=== PATIENT | female | born 1975 | race Hispanic/Latino ===

== ENCOUNTER → 2021-08-22 | Outpatient (CLI) | payer OTHER, MEDICARE | LOC: RAD 11:04 | PROVIDERS: ATTEND Internal Medicine Infectious Disease | DX: S61.402A Unspecified open wound of left hand, initial encounter (principal) | CPT/HCPCS: 93306 ==

== ENCOUNTER → 2021-08-23 | Outpatient (CLI) | payer OTHER, MEDICARE | LOC: LAB 11:21 | PROVIDERS: ATTEND Internal Medicine Infectious Disease | DX: S61.402A Unspecified open wound of left hand, initial encounter (principal) | CPT/HCPCS: 87040 ==

== ENCOUNTER → 2021-08-27 | Outpatient (CLI) | payer OTHER, MEDICARE | LOC: CARD 11:33 | PROVIDERS: ATTEND Internal Medicine Infectious Disease | DX: I99.9 Unspecified disorder of circulatory system (principal); L98.491 Non-pressure chronic ulcer of skin of other sites limited to breakdown of skin | CPT/HCPCS: 93930 ==

== ENCOUNTER 2021-08-31 09:59 | Outpatient (RCR) | payer MEDICARE, OTHER | END 2021-09-02 | LOC: WCC 09:59 | PROVIDERS: ATTEND Internal Medicine Infectious Disease | DX: E11.65 Type 2 diabetes mellitus with hyperglycemia (principal); L98.491 Non-pressure chronic ulcer of skin of other sites limited to breakdown of skin; G90.09 Other idiopathic peripheral autonomic neuropathy; I99.9 Unspecified disorder of circulatory system; N18.6 End stage renal disease; I10 Essential (primary) hypertension; I50.20 Unspecified systolic (congestive) heart failure; H40.9 Unspecified glaucoma ==

== ENCOUNTER → 2021-09-06 | Outpatient (CLI) | payer OTHER, MEDICARE | LOC: MRI 10:01 | PROVIDERS: ATTEND Internal Medicine Infectious Disease | DX: L98.491 Non-pressure chronic ulcer of skin of other sites limited to breakdown of skin (principal) ==

== ENCOUNTER 2021-09-14 11:48 | Outpatient (RCR) | payer MEDICARE | END 2021-10-02 | LOC: WCC 11:48 | PROVIDERS: ATTEND Internal Medicine Infectious Disease | DX: E11.65 Type 2 diabetes mellitus with hyperglycemia (principal); L98.491 Non-pressure chronic ulcer of skin of other sites limited to breakdown of skin; G90.09 Other idiopathic peripheral autonomic neuropathy; I99.9 Unspecified disorder of circulatory system; N18.6 End stage renal disease; I10 Essential (primary) hypertension; I50.20 Unspecified systolic (congestive) heart failure; H40.9 Unspecified glaucoma ==

== ENCOUNTER 2021-10-05 10:48 | Outpatient (RCR) | payer MEDICARE | END 2021-11-02 | LOC: WCC 10:48 | PROVIDERS: ATTEND Internal Medicine Infectious Disease | DX: E11.65 Type 2 diabetes mellitus with hyperglycemia (principal); L98.491 Non-pressure chronic ulcer of skin of other sites limited to breakdown of skin; N18.6 End stage renal disease; I10 Essential (primary) hypertension; G90.09 Other idiopathic peripheral autonomic neuropathy; I50.20 Unspecified systolic (congestive) heart failure; H40.9 Unspecified glaucoma; I99.9 Unspecified disorder of circulatory system ==